=== PATIENT | female | born 1935 | race Caucasian/White ===

== ENCOUNTER 2016-07-02 09:00 | Day surgery (SDC) | payer MEDICARE, OTHER ==
[2016-06-30 12:17] LABS: HEMATOCRIT 41.7 % (36.0-48.0)
[2016-06-30 12:32] LABS: BUN (BLOOD UREA NITROGEN) 17 MG/DL (6-23); CALCIUM, SERUM 9.7 MG/DL (8.5-10.4); CHLORIDE, SERUM 103 MMOL/L (96-112); CO2 (CARBON DIOXIDE) 31 MMOL/L (24-34); CREATININE 0.86 MG/DL (0.55-1.02); GFR AFRICAN AMERICAN 73 ML/MIN (>=60); GFR NON AFRICAN AMERICAN 63 ML/MIN (>=60); GLUCOSE, SERUM 155 MG/DL (60-99); POTASSIUM, SERUM 3.5 MMOL/L (3.5-5.3); SODIUM, SERUM 138 MMOL/L (135-148)
--- NOTE | ~2016-07-02 | OP ---
Record Of Operation [facility] [address] [place]. [address] NAME: SONNY VASQUEZ : 35 STATUS : [facility]#: [id number] AGE: 81 ADM/REG DATE : 07/02/16 MR#: [id number] REPORT SERV DATE: 07/03/16 DICTATED BY: DOUG LIEBERMAN DATE: 07/02/16 REPORT STATUS : Draft TRANSCRIBED BY: MODL DATE: 07/02/16 DATE OF PROCEDURE: 07/02/2016 PREOPERATIVE DIAGNOSIS: Melanoma in situ, right cheek. POSTOPERATIVE DIAGNOSIS: Melanoma in situ, right cheek. PROCEDURE PERFORMED: Wide local excision, right cheek melanoma in situ. SURGEON: Doug Lieberman M.D. TOOL CLERK: Chika Nick M.D. ANESTHESIA: General. COMPLICATIONS: None. CONDITION: Stable to recovery. INDICATIONS: An 81-year-old female with melanoma in situ, right cheek with surrounding hyperpigmentation with 3.5 cm diameter. Risks, benefits, and alternatives to the excision were explained and she agreed. PROCEDURE IN DETAIL: The patient was identified in preoperative holding, taken back to the operating room, and placed supine on the operating room table. General anesthesia was established. A time-out was called. The patient and procedure were confirmed. A 0.5 cm margin was marked around the melanoma in situ component of the lesion and then close margins of 1-2 mm taken around the pigmented skin. This was infiltrated subcutaneously with 1% lidocaine with 1:100,000 epinephrine, a total of 2 mL. A 15 blade was used to make the incision around the lesion down to the subcutaneous tissues and to the fascia of the orbicularis oculi superiorly. The specimen was tagged at 12 o'clock with Vicryl suture and sent to Pathology for stat analysis. The wound was 4.1 x 2.5 cm in dimension. The edges were tacked with 5-0 chromic suture. Surgicel followed by Dermabond was placed. A Telfa dressing and brown tape with Mastisol. The patient was awakened and taken to recovery in stable condition. Reconstruction deferred to final pathology assessment. PH/MODL Doug Lieberman M.D. / [id number] CC: Record Of Operation [address] [address] NAME: SONNY VASQUEZ : 35 STATUS : [facility] PAT#: [id number] AGE: 81 ADM/REG DATE : 07/02/16 MR#: [id number] REPORT SERV DATE: 07/03/16 DICTATED BY: DOUG LIEBERMAN DATE: 07/02/16 REPORT STATUS : Draft TRANSCRIBED BY: MODL DATE: 07/02/16 Vilma Alvarez M.D.
[~2016-07-02 09:00] MED LIST: ADALAT CC30 MG PO; ALTA5 PO; ASAB PO; CENTRUM TAB1 TAB PO; CO Q-10100 MG PO; COQ10100 MG OR; DYAZIDE1 CAP PO; ELIQUIS 2.5 MG2.5 MG PO; FISH-EPA1000 MG PO; FOSAMAX70 MG PO; GLUCCHONDR PO; KLOR-CON M2020 MEQ PO; MAGOX4 PO; MAX25 PO; METAMUCIL CAN7 OZ PO; NOLV10 PO; RESTASIS OPH; RYTHMOL SR225 MG PO; RYTHMOL225 MG PO; Rythmol PO; SLOWMAG PO; SPIRO25 PO; TIKOSYN125 MCG PO; TOMOXIFIN; VITAMIN B PO; VITAMIN B-121000 MC1 SL; VITAMIN D31000 UNIT PO; ZOCOR20 PO
== END 2016-07-02 14:45 | disposition home or self-care (01) ==
LOC: SDC 09:00
PROVIDERS: Specialist
PROC: 0WB Anatomical Regions, General, Excision (ICD-10-PCS; principal; 2016-07-02 11:30)
DX: D03.39 Melanoma in situ of other parts of face (principal); E78.00 Pure hypercholesterolemia, unspecified; G62.9 Polyneuropathy, unspecified; M19.90 Unspecified osteoarthritis, unspecified site; Z85.3 Personal history of malignant neoplasm of breast
CPT/HCPCS: 80048; 82962; 85014; 85018; 88305; 88341; 88342; 93005; J0690; J2405; J3010

== ENCOUNTER 2016-07-04 07:19 | Day surgery (SDC) | payer MEDICARE, OTHER ==
--- NOTE | ~2016-07-04 | OP ---
Record Of Operation [facility] [address] [place]. [address] NAME: SONNY VASQUEZ : 35 STATUS : [facility]#: [id number] AGE: 81 ADM/REG DATE : 07/04/16 MR#: [id number] REPORT SERV DATE: 07/07/16 DICTATED BY: DOUG LIEBERMAN DATE: 07/04/16 REPORT STATUS : Draft TRANSCRIBED BY: MODL DATE: 07/04/16 DATE OF PROCEDURE: 07/04/2016 PREOPERATIVE DIAGNOSIS: Melanoma in situ of the right cheek status post wide excision of melanoma lesion with open surgical defect. POSTOPERATIVE DIAGNOSIS: Melanoma in situ of the right cheek status post wide excision of melanoma lesion with open surgical defect. PROCEDURE PERFORMED: 1. Re-excision of melanoma in situ, margins, 1 to 3 o'clock, 3 to 5 o'clock, 7 to 11 o'clock. 2. Cervical facial advancement flap closure of 4.8 x 3.5 cm defect. SURGEON: Doug Lieberman M.D. REST ROOM ATTENDANT: Saji. ANESTHESIA: General. COMPLICATIONS: None. CONDITION: Stable to recovery. INDICATIONS: An 81-year-old female with melanoma in situ of the right cheek excised earlier in the week and final margin showing a close focally positive margin at the 1 to 3 o'clock margin and then close margins from 3 to 5 and 7 to 11 o'clock at about 4 mm. The risks, benefits, and alternatives to closure of the defect were explained to the patient, and she agreed. PROCEDURE IN DETAIL: The patient was identified in preoperative holding, taken back to the operating room, and placed supine on the operating room table. General anesthesia was established. Her wound was inspected and prepped for the procedure infiltrating the peripheral edges with a total of 4 mL of 1% lidocaine with 1:100,000 epinephrine. The Dermabond and Surgicel were removed from the central wound. The 1 to 3 o'clock margin was marked and revised with a 15 C blade, marking the true margin with ink pen and orienting it 1 to 3 o'clock and sending it to the pathologist for permanent pathology analysis. I additionally sent a 3 to 5 o'clock margin with the true margin ink and a 7 to 11 o'clock margin with the true margin ink since these margins were within 4 mm of the of the tumor. This also helped freshen the edge of the wound. The wound was 4.8 x 3.5 cm in dimension. I then fashioned a cervical facial advancement flap along the interface of the cheek and lower lid along the [place] feet wrinkle of the lateral cheek and into the preauricular skin crease. This was elevated with a 15 blade and needle tip cautery and Metzenbaum scissors. It was rotated into the 4.8 x 3.5 cm defect and secured with 4-0 Vicryl and 5-0 interrupted Prolene suture along the medial cheek and lateral cheek, and 6-0 chromic fast-absorbing suture was used to close the interface with the lower eyelid. Steri-Strips were placed. Record Of Operation [address] [place]. [address] NAME: SONNY VASQUEZ : 35 STATUS : [facility] PAT#: [id number] AGE: 81 ADM/REG DATE : 07/04/16 MR#: [id number] REPORT SERV DATE: 07/07/16 DICTATED BY: DOUG LIEBERMAN DATE: 07/04/16 REPORT STATUS : Draft TRANSCRIBED BY: MODL DATE: 07/04/16 The patient was awakened and taken to recovery in stable condition. There were no complications. PH/MODL Doug Lieberman M.D. / [id number] CC: Vilma Alvarez M.D.
== END 2016-07-04 15:53 | disposition home or self-care (01) ==
LOC: SDC 07:19
PROVIDERS: Specialist
PROC: 0HX1XZZ Transfer Face Skin, External Approach (ICD-10-PCS; principal; 2016-07-04 09:00)
DX: D03.8 Melanoma in situ of other sites (principal); I10 Essential (primary) hypertension; E78.00 Pure hypercholesterolemia, unspecified; E11.9 Type 2 diabetes mellitus without complications; Z88.2 Allergy status to sulfonamides; Z85.3 Personal history of malignant neoplasm of breast; Z88.8 Allergy status to other drugs, medicaments and biological substances
CPT/HCPCS: 82962; 88305; 93005; J0360; J0690; J2250; J2405; J3010